=== PATIENT | male | born 1945 | race Caucasian/White ===

== ENCOUNTER 2021-03-16 06:18 | Emergency (ER) | payer MEDICARE ==
[~2021-03-16 06:18] MED LIST: VIMPAT200 MG PO
[2021-03-16 06:41] LABS: HEMOGLOBIN 14.3 gm/dl (14.0-17.5); RED BLOOD COUNT 4.52 M/UL (4.20-5.50); WHITE BLOOD COUNT 8.9 K/UL (4.5-11.0)
[2021-03-16 07:08] LABS: BUN/CREATININE RATIO 20 (0-10)
== END 2021-03-16 15:05 | disposition other institution (70) ==
LOC: ER1 06:18
PROVIDERS: Emergency Medicine; Family Medicine
DX: M25.512 Pain in left shoulder (principal); I10 Essential (primary) hypertension; R55 Syncope and collapse; R41.0 Disorientation, unspecified; W19.XXXA Unspecified fall, initial encounter; Z86.73 Personal history of transient ischemic attack (TIA), and cerebral infarction without residual deficits
CPT/HCPCS: 70450; 71045; 72125; 72192; 80053; 80307; 81001; 82550; 82553; 83605; 83690; 83735; 83874; 84484; 85025; 93005; 96374; 99285; J0360

== ENCOUNTER 2021-08-15 17:07 | Inpatient (IN) | payer MEDICARE, OTHER ==
[~2021-08-15] VITALS: Ht 162.6 cm; Wt 79.4 kg
[2021-08-15 17:59] LABS: HEMOGLOBIN 13.4 gm/dl (14.0-17.5); RED BLOOD COUNT 4.12 M/UL (4.20-5.50); WHITE BLOOD COUNT 10.3 K/UL (4.5-11.0)
[2021-08-15 18:22] LABS: BUN/CREATININE RATIO 16 (0-10)
[2021-08-16 04:45] LABS: HEMOGLOBIN 11.2 gm/dl (14.0-17.5); RED BLOOD COUNT 3.49 M/UL (4.20-5.50); WHITE BLOOD COUNT 9.4 K/UL (4.5-11.0)
[2021-08-16 05:07] LABS: BUN/CREATININE RATIO 15 (0-10)
[2021-08-16] MEDS ORDERED: KEPPRA1000 MG PO (12:56)
[2021-08-16] MEDS ORDERED: GABAPENTIN600 MG PO (12:57)
[2021-08-16] MEDS ORDERED: PERCOCET 10-321 EACH PO (12:58)
[2021-08-16] MEDS ORDERED: AMLODIPINE BESYL5 MG PO (12:58)
[2021-08-16] MEDS ORDERED: METOPROLOL TART50 MG PO (12:59)
[2021-08-16] MEDS ORDERED: ESOMEPRAZOLE MA40 MG PO (12:59)
[2021-08-16] MEDS ORDERED: QUETIAPINE FUM200 MG PO (12:59)
--- NOTE | 2021-08-18 23:32 | NUR ---
PATIENT MEDICATION SEROQUEL 200MG QHS WAS FILLED 05/24/21 90 DAY SUPPLY. HIS SAID THAT HE RAN OUT OF MEDICATION A FEW MONTHS AGO AND HADN'T TAKEN IT. STATES HIS FAMILY DOCTOR IS NO LONGER AT THE OFFICE, AND HE DOESN'T HAVE A FAMILY DOCTOR AT THIS TIME. THE MEDICATION SEROQUEL WAS A 90 DAY SUPPLY FILLED 05/24/21. IF HE WAS TAKING TAB AT BEDTIME HE SHOULD HAVE HAD ENOUGH TO LAST UNTIL 08/24/21. BUT THE SAID HE RAN OUT ABOUT 2 MONTHS AGO. HIS SAID THAT HE FELL 2 WEEKS AGO, AND HIT HIS SIDE. I ASK IF THEY HAD TAKEN HIS TO THE DOCTOR AT THE TIME OF THE FALL AND SHE STATED THAT THEY HADN'T.
[2021-08-20 10:37] LABS: HEMOGLOBIN 10.6 gm/dl (14.0-17.5); RED BLOOD COUNT 3.35 M/UL (4.20-5.50); WHITE BLOOD COUNT 11.4 K/UL (4.5-11.0)
--- NOTE | 2021-08-21 02:50 | NUR ---
ATTEMPTED TO NOTIFY DR MIJARES BECAUSE PATIENT TRYING TO CLIMB OUT OF BED AND IS PULLING AT IV LINES. WILL CONTINUE TO ATTEMPT TO REACH MD.
[2021-08-21 13:07] LABS: HEMOGLOBIN 10.6 gm/dl (14.0-17.5); RED BLOOD COUNT 3.32 M/UL (4.20-5.50)
[2021-08-22 07:38] LABS: HEMOGLOBIN 9.9 gm/dl (14.0-17.5); RED BLOOD COUNT 3.23 M/UL (4.20-5.50); WHITE BLOOD COUNT 10.2 K/UL (4.5-11.0)
[2021-08-23 04:09] LABS: METANEPHRINE, PL 50.6 pg/mL (0.0-88.0); NORMETANEPHRINE, PL 330.6 pg/mL (0.0-191.8)
[2021-08-23 09:08] LABS: HEMOGLOBIN 10.7 gm/dl (14.0-17.5); RED BLOOD COUNT 3.38 M/UL (4.20-5.50); WHITE BLOOD COUNT 9.2 K/UL (4.5-11.0)
[2021-08-23 16:14] LABS: DOPAMINE, URINE 85 ug/L (Undefined)
[2021-08-24 06:57] LABS: HEMOGLOBIN 10.5 gm/dl (14.0-17.5); RED BLOOD COUNT 3.31 M/UL (4.20-5.50); WHITE BLOOD COUNT 10.1 K/UL (4.5-11.0)
--- NOTE | 2021-08-24 17:17 | NUR ---
158/82 P 80 R 16 O2 94 ON PT ALERT BASELINE PT FOUND IN FLOOR AFTER PUT IN CHAIR MD NOTIFIED SEE ORDERS DOUBLE BED ALARM PLACED ON PATIENT PT CLOSE TO NURSES STATION MADDIE....
[2021-08-25 07:04] LABS: HEMOGLOBIN 10.8 gm/dl (14.0-17.5); RED BLOOD COUNT 3.4 M/UL (4.20-5.50); WHITE BLOOD COUNT 10.3 K/UL (4.5-11.0)
[2021-08-25] MEDS ORDERED: LEVOFLOXACIN250 MG PO (11:36)
[2021-08-25] MEDS ORDERED: VITAMIN D325 MCG PO (15:57)
--- NOTE | 2021-08-25 23:00 | NUR ---
PATIENT BE CAME MODERATELY COMBATIVE DURING PERSONAL CARE, AND PUSHED AGAINST STAFF TRYING TO REPOSITION HIM FOR PERSONAL CARE AND CHANGING HIS BREIF. ALSO ATTEMPTED TO SWING IN AN ATTEMPT TO STRIKE STAFF. AT BEDSIDE, STATES" HE DOES'T DO THIS AT HOME, HE'S WORSE HERE THAN AT HOME."
[2021-08-26 07:34] LABS: HEMOGLOBIN 10.7 gm/dl (14.0-17.5); RED BLOOD COUNT 3.41 M/UL (4.20-5.50); WHITE BLOOD COUNT 10.9 K/UL (4.5-11.0)
[2021-08-27 10:18] LABS: HEMOGLOBIN 10.6 gm/dl (14.0-17.5); RED BLOOD COUNT 3.37 M/UL (4.20-5.50); WHITE BLOOD COUNT 9.9 K/UL (4.5-11.0)
[2021-08-27 23:07] LABS: AMPHETAMINES, URINE Negative ng/mL (Cutoff=1000); BARBITURATE Negative ng/mL (Cutoff=200); BENZODIAZEPINES Negative ng/mL (Cutoff=200); CANNABINOIDS Negative ng/mL (Cutoff=20); COCAINE (METABOLITE) Negative ng/mL (Cutoff=300); MEPERIDINE Negative ng/mL (Cutoff=200); METHADONE Negative ng/mL (Cutoff=300); OPIATES Negative ng/mL (Cutoff=300); OPIATES See Final Results ng/mL (Cutoff=300); OXYCODONE Positive (.); OXYCODONE (GC/MS) 814 ng/mL (Cutoff=300); OXYCODONE/OXYMORPH Positive (Cutoff=300); OXYMORPHONE Positive (.); OXYMORPHONE (GC/MS) 419 ng/mL (Cutoff=300); PHENCYCLIDINE Negative ng/mL (Cutoff=25); PROPOXYPHENE Negative ng/mL (Cutoff=300)
[2021-08-28 07:02] LABS: HEMOGLOBIN 9.7 gm/dl (14.0-17.5); RED BLOOD COUNT 3.1 M/UL (4.20-5.50); WHITE BLOOD COUNT 9.8 K/UL (4.5-11.0)
--- NOTE | 2021-08-29 00:34 | NUR ---
08/28/2021 @ 23:45 - Patient not allowing staff to provide incontinent care, pt is combative, hitting and kicking staff, yelling loudly, trying to take off brief and attempting to rip out IV. Charge nurse Tammy Andersen RN notified Dr Castro at this time of patient's behavior. Obtained order for Geodon 10mg IM x1 dose.
[2021-08-29 09:15] LABS: RED BLOOD COUNT 3.16 M/UL (4.20-5.50); WHITE BLOOD COUNT 10.6 K/UL (4.5-11.0)
--- NOTE | 2021-08-29 16:28 | NUR ---
IVF STOPPED AT THIS TIME DUE TO PATIENT'S NONCOMPLIANCE. NOTIFIED .
--- NOTE | 2021-08-30 15:19 | NUR ---
PATIENT EXTREMELY COMBATIVE WITH STAFF. THIS NURSE ENTERED ROOM DUE TO PATIENT YELLING FOR HELP. PATIENT IMMEDIATELY GRABBED HIS OXYGEN CORD AND BEGAN SLAPPING ME IN THE FACE WITH IT WHILE CONTINUING TO YELL. PATIENT WET AND SOILED WITH URINE. FOUR STAFF MEMBERS REQUIRED TO CHANGE PATIENT'S BRIEF AND BED LINENS AT THIS TIME. PATIENT CONTINUES TO BITE, KICK, AND PUNCH STAFF MEMBERS DURING BED CHANGE. NOTIFIED MD. NEW ORDER FOR SANTINO NOTED.
[2021-09-03] MEDS ORDERED: FLOMAX 0.4 MG0.4 MG PO (08:52)
[2021-09-03] MEDS ORDERED: KEPPRA 500 MG500 MG PO (08:52)
[2021-09-03] MEDS ORDERED: AMLODIPINE BESYL5 MG PO (08:52)
[2021-09-03] MEDS ORDERED: HYDRALAZINE HCL50 MG PO (08:52)
[2021-09-03] MEDS ORDERED: PROAIR HFA8.5 GM INH (09:48)
[2021-09-03] MEDS ORDERED: IPRAT-ALBUT 0.5-3 ML NEB (09:48)
--- NOTE | 2021-09-03 09:54 | NUR ---
ROOM AIR SAT 86%
--- NOTE | 2021-09-05 02:27 | NUR ---
0025 DR CROWE ON FLOOR TO SEE PT. ORDERS GIVEN FOR DUO NEBS NOW, PERCOCET NOW, LASIX 40MG IV. RT WAS NOTIFIED. WILL CONTINUE TO MONITOR PATIENT AND WILL OBATIN IV ACCESS FOR LASIX,
--- NOTE | 2021-09-05 07:45 | NUR ---
Patient's requesting pain medication, breathing treatment, and also requesting lasix. Resp. Therapy called for breathing treatment, expalined to patient it was not time for pain medication, and lasix was only ordered for 1 time dose. Patient's daughter called also requesting lasix, and stated that was "ALL" she was asking for" that her Dad could not breathe because of fluid. Explained to daughter breathing treatment had been given, 02 sat was 95% and lasix was a one time dose, I told the daughter I would call the doctor. I called Dr. Wright and Dr. Wright said that he would look at the chart and write orders shortly.
[2021-09-06 04:09] LABS: HEMOGLOBIN 9.5 gm/dl (14.0-17.5); RED BLOOD COUNT 3.09 M/UL (4.20-5.50); WHITE BLOOD COUNT 9.3 K/UL (4.5-11.0)
--- NOTE | 2021-09-06 04:38 | NUR ---
VBG WAS ATTEMPED BY [facility], RNConsuelo obtained sample, results read as arterial.
[2021-09-07 04:48] LABS: HEMOGLOBIN 9.8 gm/dl (14.0-17.5); RED BLOOD COUNT 3.14 M/UL (4.20-5.50); WHITE BLOOD COUNT 11.1 K/UL (4.5-11.0)
[2021-09-08 06:45] LABS: HEMOGLOBIN 9.9 gm/dl (14.0-17.5); RED BLOOD COUNT 3.17 M/UL (4.20-5.50); WHITE BLOOD COUNT 9.2 K/UL (4.5-11.0)
[2021-09-09 08:28] LABS: HEMOGLOBIN 10.4 gm/dl (14.0-17.5); RED BLOOD COUNT 3.34 M/UL (4.20-5.50); WHITE BLOOD COUNT 8.6 K/UL (4.5-11.0)
[2021-09-10 07:10] LABS: RED BLOOD COUNT 3.2 M/UL (4.20-5.50); WHITE BLOOD COUNT 8.7 K/UL (4.5-11.0)
[2021-09-11 05:54] LABS: HEMOGLOBIN 10.2 gm/dl (14.0-17.5); RED BLOOD COUNT 3.26 M/UL (4.20-5.50); WHITE BLOOD COUNT 8.5 K/UL (4.5-11.0)
[2021-09-12 08:49] LABS: HEMOGLOBIN 9.6 gm/dl (14.0-17.5); RED BLOOD COUNT 3.1 M/UL (4.20-5.50); WHITE BLOOD COUNT 8.1 K/UL (4.5-11.0)
[2021-09-12] MEDS ORDERED: LASIX20 MG PO (19:27)
[2021-09-12] MEDS ORDERED: PERCOCET 5/325 T1 EA PO (19:42)
== END 2021-09-12 23:52 | disposition home health service (06) | DRG 682 ==
LOC: ER1 17:07 → CDU 22:03 → MED SURG 4 22:03 → PROG CARE 08-16 16:03 → MED SURG 4 08-17 15:48
PROVIDERS: Internal Medicine; Internal Medicine Nephrology; Physician Assistant; Student in an Organized Health Care Education/Training Program; ADMIT Internal Medicine
DX: N17.9 Acute kidney failure, unspecified (principal); I50.33 Acute on chronic diastolic (congestive) heart failure; J96.01 Acute respiratory failure with hypoxia; G93.41 Metabolic encephalopathy; S22.32XA Fracture of one rib, left side, initial encounter for closed fracture; J98.11 Atelectasis; E87.1 Hypo-osmolality and hyponatremia; E87.2 Acidosis; N30.00 Acute cystitis without hematuria; I13.0 Hypertensive heart and chronic kidney disease with heart failure and stage 1 through stage 4 chronic kidney disease, or unspecified chronic kidney disease; I16.0 Hypertensive urgency; G40.909 Epilepsy, unspecified, not intractable, without status epilepticus; Z20.822 Contact with and (suspected) exposure to COVID-19; G89.29 Other chronic pain; D63.1 Anemia in chronic kidney disease; I27.20 Pulmonary hypertension, unspecified; R53.81 Other malaise; N18.30 Chronic kidney disease, stage 3 unspecified; I65.29 Occlusion and stenosis of unspecified carotid artery; E11.22 Type 2 diabetes mellitus with diabetic chronic kidney disease; G25.0 Essential tremor; D50.9 Iron deficiency anemia, unspecified; W01.0XXA Fall on same level from slipping, tripping and stumbling without subsequent striking against object, initial encounter; B96.20 Unspecified Escherichia coli [E. coli] as the cause of diseases classified elsewhere; F03.90 Unspecified dementia, unspecified severity, without behavioral disturbance, psychotic disturbance, mood disturbance, and anxiety; K59.00 Constipation, unspecified; E87.5 Hyperkalemia; Z86.73 Personal history of transient ischemic attack (TIA), and cerebral infarction without residual deficits; Z82.49 Family history of ischemic heart disease and other diseases of the circulatory system; Z89.421 Acquired absence of other right toe(s); Z79.899 Other long term (current) drug therapy; Z89.012 Acquired absence of left thumb
CPT/HCPCS: ECHO; 36415; 36600; 70450; 70551; 71045; 71046; 73502; 73552; 80048; 80053; 80307; 81001; 82088; 82140; 82384; 82533; 82550; 82553; 82565; 82570; 82607; 82728; 82746; 82803; 82962; 83036; 83540; 83550; 83605; 83735; 83835; 83874; 83880; 83930; 83935; 84100; 84133; 84156; 84244; 84300; 84439; 84443; 84484; 84550; 84585; 85025; 85027; 85045; 85610; 85652; 86140; 87040; 87077; 87086; 87186; 89050; 93005; 93306; 93880; 94640; 94664; 94760; 96374; 97110; 97110-GP-CQ; 97116; 97162; 97164; 97167; 97530; 97530-GP-CQ; 99285; J0360; J0696; J1205; J1335; J1644; J1650; J1940; J2270; J2405; J2543; J2930; J3486; J7030; P9047; U0002

== ENCOUNTER 2021-12-12 17:04 | Emergency (ER) | payer MEDICARE ==
[~2021-12-12 17:04] MED LIST changes: +AMLODIPINE BESYL5 MG PO; +ESOMEPRAZOLE MA40 MG PO; +FLOMAX 0.4 MG0.4 MG PO; +GABAPENTIN600 MG PO; +HYDRALAZINE HCL50 MG PO; +IPRAT-ALBUT 0.5-3 ML NEB; +KEPPRA 500 MG500 MG PO; +KEPPRA1000 MG PO; +LASIX20 MG PO; +LEVOFLOXACIN250 MG PO; +METOPROLOL TART50 MG PO; +PERCOCET 10-321 EACH PO; +PERCOCET 5/325 T1 EA PO; +PROAIR HFA8.5 GM INH; +QUETIAPINE FUM200 MG PO; +VITAMIN D325 MCG PO
[2021-12-12 17:36] LABS: HEMOGLOBIN 12.8 gm/dl (14.0-17.5); RED BLOOD COUNT 4.17 M/UL (4.20-5.50); WHITE BLOOD COUNT 11.4 K/UL (4.5-11.0)
[2021-12-12] MEDS ORDERED: FLOMAX0.4 MG PO (21:18)
[2021-12-12] MEDS ORDERED: VIMPAT200 MG PO (21:19)
== END 2021-12-12 21:42 | disposition home or self-care (01) ==
LOC: ER1 17:04
PROVIDERS: Nurse Practitioner
DX: R56.9 Unspecified convulsions (principal); S06.9X9A Unspecified intracranial injury with loss of consciousness of unspecified duration, initial encounter; S01.112A Laceration without foreign body of left eyelid and periocular area, initial encounter; Z20.822 Contact with and (suspected) exposure to COVID-19; M25.512 Pain in left shoulder; I10 Essential (primary) hypertension; W01.10XA Fall on same level from slipping, tripping and stumbling with subsequent striking against unspecified object, initial encounter
CPT/HCPCS: 0240U; 12013; 70450; 71045; 72125; 73020; 73060; 80053; 81001; 82550; 82553; 84484; 85025; 93005; 99284

== ENCOUNTER 2022-06-17 12:04 | Inpatient (IN) | payer MEDICARE ==
[~2022-06-17] VITALS: Ht 172.7 cm; Wt 77.0 kg
[~2022-06-17 12:04] MED LIST changes: +FLOMAX0.4 MG PO
[2022-06-17 13:53] LABS: HEMOGLOBIN 11.8 gm/dl (14.0-17.5); RED BLOOD COUNT 3.91 M/UL (4.20-5.50); WHITE BLOOD COUNT 7.4 K/UL (4.5-11.0)
[2022-06-17] MEDS ORDERED: PERCOCET 10-321 EACH PO (15:50)
[2022-06-17] MEDS ORDERED: LACOSAMIDE200 MG PO (15:51)
[2022-06-17] MEDS ORDERED: HYDRALAZINE HCL50 MG PO (15:51)
[2022-06-17] MEDS ORDERED: KEPPRA1000 MG PO (15:51)
[2022-06-17] MEDS ORDERED: MELATONIN5 M2 PO (15:51)
[2022-06-17] MEDS ORDERED: FLOMAX 0.4 MG0.4 MG PO (15:51)
[2022-06-17] MEDS ORDERED: AMLODIPINE BESYL5 MG PO (15:52)
[2022-06-18 06:54] LABS: HEMOGLOBIN 11.7 gm/dl (14.0-17.5); RED BLOOD COUNT 3.89 M/UL (4.20-5.50)
[2022-06-18 06:58] LABS: WHITE BLOOD COUNT 3.9 K/UL (4.5-11.0)
[2022-06-19 04:19] LABS: HEMOGLOBIN 10.7 gm/dl (14.0-17.5); RED BLOOD COUNT 3.6 M/UL (4.20-5.50)
[2022-06-19 04:22] LABS: WHITE BLOOD COUNT 6.6 K/UL (4.5-11.0)
--- NOTE | 2022-06-19 10:48 | NUR ---
orthostatic vital signs performed. results. laying- 78 hr 165/77 sitting- 84 hr 166/89 standing- 98 hr 146/88
[2022-06-21 15:13] LABS: ORGANISM ID Not indicated. (.); SPECIMEN SOURCE Urine (.); STREPTOCOCCUS PNEUMONIAE AG Negative (Negative)
== END 2022-06-21 18:58 | disposition home or self-care (01) | DRG 177 ==
LOC: ER1 12:04 → M/S 15:30 → CDU 15:30 → M/S 15:30
PROVIDERS: Emergency Medicine; Internal Medicine; Internal Medicine Nephrology; Physician Assistant Medical; ADMIT Internal Medicine
PROC: 3E0333Z Introduction of Anti-inflammatory into Peripheral Vein, Percutaneous Approach (ICD-10-PCS; principal; 2022-06-17)
PROC: XW033E5 Introduction of Remdesivir Anti-infective into Peripheral Vein, Percutaneous Approach, New Technology Group 5 (ICD-10-PCS; 2022-06-17)
PROC: B24BZZZ Ultrasonography of Heart with Aorta (ICD-10-PCS; 2022-06-19)
DX: U07.1 COVID-19 (principal); J12.82 Pneumonia due to coronavirus disease 2019; J96.01 Acute respiratory failure with hypoxia; E87.2 Acidosis; N17.9 Acute kidney failure, unspecified; I13.0 Hypertensive heart and chronic kidney disease with heart failure and stage 1 through stage 4 chronic kidney disease, or unspecified chronic kidney disease; I50.32 Chronic diastolic (congestive) heart failure; I95.9 Hypotension, unspecified; R25.1 Tremor, unspecified; I08.3 Combined rheumatic disorders of mitral, aortic and tricuspid valves; E11.22 Type 2 diabetes mellitus with diabetic chronic kidney disease; D63.1 Anemia in chronic kidney disease; N18.30 Chronic kidney disease, stage 3 unspecified; N40.0 Benign prostatic hyperplasia without lower urinary tract symptoms; I27.20 Pulmonary hypertension, unspecified; R53.81 Other malaise; G40.909 Epilepsy, unspecified, not intractable, without status epilepticus; Z99.81 Dependence on supplemental oxygen; Z86.73 Personal history of transient ischemic attack (TIA), and cerebral infarction without residual deficits; Z98.890 Other specified postprocedural states; Z89.421 Acquired absence of other right toe(s); Z89.012 Acquired absence of left thumb; Z82.49 Family history of ischemic heart disease and other diseases of the circulatory system
CPT/HCPCS: ECHO; 36415; 70450; 71045; 80048; 80053; 80202; 81001; 82550; 82553; 82962; 83540; 83550; 83735; 83880; 84100; 84484; 85025; 85027; 86140; 87040; 87070; 87086; 87205; 87278; 87899; 93005; 93306; 93880; 94640; 94664; 94760; 96365; 96374; 96375; 99285; G0378; J0248; J0456; J0696; J1100; J1650; J3370; J7030; J7070; P9047; U0002

== ENCOUNTER 2022-06-22 15:43 | Emergency (ER) | payer MEDICARE ==
[~2022-06-22 15:43] MED LIST changes: +LACOSAMIDE200 MG PO; +MELATONIN5 M2 PO
[2022-06-22 16:06] LABS: HEMOGLOBIN 11.3 gm/dl (14.0-17.5); RED BLOOD COUNT 3.76 M/UL (4.20-5.50); WHITE BLOOD COUNT 7.4 K/UL (4.5-11.0)
== END 2022-06-22 22:19 | disposition home or self-care (01) ==
LOC: ER1 15:43
PROVIDERS: Emergency Medicine
DX: S42.212A Unspecified displaced fracture of surgical neck of left humerus, initial encounter for closed fracture (principal); S00.83XA Contusion of other part of head, initial encounter; S70.02XA Contusion of left hip, initial encounter; S60.222A Contusion of left hand, initial encounter; S60.221A Contusion of right hand, initial encounter; S50.02XA Contusion of left elbow, initial encounter; S50.12XA Contusion of left forearm, initial encounter; E11.9 Type 2 diabetes mellitus without complications; I11.0 Hypertensive heart disease with heart failure; I50.9 Heart failure, unspecified; W01.10XA Fall on same level from slipping, tripping and stumbling with subsequent striking against unspecified object, initial encounter; Y92.009 Unspecified place in unspecified non-institutional (private) residence as the place of occurrence of the external cause
CPT/HCPCS: 70450; 71045; 72125; 72170; 72192; 73030; 73080; 73090; 73130; 80053; 82550; 82553; 84484; 85025; 93005; 96361; 96374; 96375; 96376; 99284; J2270; J2405